=== PATIENT | female | born 1990 | race Caucasian/White ===

== ENCOUNTER 2017-02-07 16:59 | Emergency (ER) | payer BC ==
[~2017-02-07 16:59] MED LIST: ABILIFY30 M1 PO; CELEXA40 M1 PO; CIPRO500 M2 PO; COLACE100 M1 PO; DEPAKOTE500 M1 PO; KLONOPIN1 M1 PO; LEXAPRO20 MG PO; MOTRIN600 MG PO; PRENATAL1 EACH PO; PYRIDIUM100 M2 PO; ROBAXIN750 MG/TAB PO; TRAZODONE HCL50 M1 PO; TUMS500 MG PO; XANAX0.25 MG PO; ZOLOFT100 M1 PO; [UNRECOGNIZED DRUG - REMARK]
== END 2017-02-07 19:45 | disposition other institution (70) ==
LOC: EDMED 16:59
DX: F31.9 Bipolar disorder, unspecified (principal); F43.10 Post-traumatic stress disorder, unspecified; F17.200 Nicotine dependence, unspecified, uncomplicated; Z79.899 Other long term (current) drug therapy